=== PATIENT | female | born 1975 | race African-American/Black ===

== ENCOUNTER 2017-06-07 04:47 | Emergency (ER) | payer SELFPAY ==
[2017-06-07] MEDS ORDERED: ZOFRAN IV ONE ×3 (05:36→11:40)
[2017-06-07] MEDS ORDERED: TORADOL IV ONE (05:37)
[2017-06-07 06:15] LABS: Basophils % (Auto) 0.3 % (0.0-1.8); Eosinophils # (Auto) 0.2 K/mm3 (0.0-0.4); Eosinophils % (Auto) 1.5 % (0.0-4.3); Hematocrit 39.2 % (30.3-42.9); Hemoglobin 13.4 gm/dl (10.1-14.3); Lymphocytes # (Auto) 1.6 K/mm3 (1.2-5.4); Lymphocytes % (Auto) 11.2 % (13.4-35.0); Mean Corpuscular HGB Conc 34 % (30-34); Mean Corpuscular Hemoglobin 30 pg (28-32); Mean Corpuscular Volume 89 fl (79-97); Monocytes # (Auto) 0.4 K/mm3 (0.0-0.8); Monocytes % (Auto) 3.1 % (0.0-7.3); Platelet Count 478 K/mm3 (140-440); Red Blood Count 4.42 M/mm3 (3.65-5.03); Red Cell Distribution Width 13.2 % (13.2-15.2)
[2017-06-07 06:28] LABS: BUN/Creatinine Ratio 23; Blood Urea Nitrogen 16 mg/dL (7-17); Calcium 8.8 mg/dL (8.4-10.2); Hemolysis Index 3
[2017-06-07] MEDS ORDERED: DILAUDID IV ONE (10:00)
--- NOTE | 2017-06-07 10:03 | Emergency Department Report ---
ED General Adult HPI - General Chief complaint: Abdominal Pain Stated complaint: BACK PAIN Time Seen by Provider: 06/07/17 09:53 Source: patient Mode of arrival: Ambulatory Limitations: No Limitations - History of Present Illness Initial comments: Mrs. Boyer is a healthy 42-year-old female with history of kidney stone. She woke up this morning with severe sudden onset of right flank pain which radiates to the right lower quadrant. She has had nausea and vomiting. Pain initially 10 out of 10 in severity. It is currently 8 out of 10 in severity. Sharp in nature. Pain does not change with movement. Pain has been constant since this morning. Severity scale (0 -10): 8 - Related Data Previous Rx's Medication Instructions Recorded Last Taken Type HYDROcodone/APAP 5-325 [[place] 1 each PO Q4HR PRN #15 tablet 06/07/17 Unknown Rx 5/325] Promethazine [Phenergan TAB] 25 mg PO Q6HR PRN #10 tab 06/07/17 Unknown Rx Tamsulosin [Flomax] 0.4 mg PO QDAY 7 Days #7 cap 06/07/17 Unknown Rx Allergies Allergy/AdvReac Type Severity Reaction Status Date / Time Penicillins Allergy Unknown Verified 06/07/17 05:39 ED Review of Systems ROS: Stated complaint: BACK PAIN Other details as noted in HPI Comment: All other systems reviewed and negative Constitutional: denies: fever, malaise Respiratory: denies: cough ED Past Medical Hx - Past Medical History Hx Kidney Stones: Yes - Surgical History Past Surgical History?: No - Social History Smoking Status: Never Smoker Substance Use Type: None - Medications Home Medications: Home Medications Medication Instructions Recorded Confirmed Last Taken Type HYDROcodone/APAP 5-325 [[place] 1 each PO Q4HR PRN #15 tablet 06/07/17 Unknown Rx 5/325] Promethazine [Phenergan TAB] 25 mg PO Q6HR PRN #10 tab 06/07/17 Unknown Rx Tamsulosin [Flomax] 0.4 mg PO QDAY 7 Days #7 cap 06/07/17 Unknown Rx ED Physical Exam - General Limitations: No Limitations General appearance: alert, in no apparent distress - Head Head exam: Present: atraumatic, normocephalic - Eye Eye exam: Present: normal appearance - ENT ENT exam: Present: mucous membranes moist - Neck Neck exam: Present: normal inspection - Respiratory Respiratory exam: Present: normal lung sounds bilaterally. Absent: respiratory distress, wheezes, rales, rhonchi - Cardiovascular Cardiovascular Exam: Present: regular rate, normal rhythm. Absent: systolic murmur, diastolic murmur, rubs, gallop - GI/Abdominal GI/Abdominal exam: Present: soft, normal bowel sounds. Absent: distended, tenderness, guarding, rebound - Extremities Exam Extremities exam: Present: normal inspection - Back Exam Back exam: Present: normal inspection, CVA tenderness (R) - Neurological Exam Neurological exam: Present: alert, oriented X3 - Psychiatric Psychiatric exam: Present: normal affect, normal mood - Skin Skin exam: Present: warm, dry, intact, normal color. Absent: rash ED Course Vital Signs 06/07/17 06/07/17 06:05 08:34 Temperature 97.7 F 98.2 F Pulse Rate 67 75 Respiratory 16 20 Rate Blood Pressure 139/89 Blood Pressure 164/87 [Left] O2 Sat by Pulse 100 75 L Oximetry ED Medical Decision Making - Lab Data Result diagrams: 06/07/17 05:55 06/07/17 05:55 Mrs. Boyer presents with renal colic. She has 2 stones in the proximal right ureter the largest measuring 6.4 mm. She is currently pain-free. She understands return precautions of fever vomiting or severe pain. Prescription for Flomax, [place], promethazine provided. She also was given urology referral. Critical care attestation.: If time is entered above; I have spent that time in minutes in the direct care of this critically ill patient, excluding procedure time. ED Disposition Clinical Impression: Ureterolithiasis, Renal colic on right side Disposition: DC-01 TO HOME OR SELFCARE Is pt being admited?: No Does the pt Need Aspirin: No Condition: Stable Instructions: Kidney Stones (ED) Prescriptions: HYDROcodone/APAP 5-325 [[place] 5/325] 1 each PO Q4HR PRN #15 tablet PRN Reason: Pain Promethazine [Phenergan TAB] 25 mg PO Q6HR PRN #10 tab PRN Reason: Nausea Tamsulosin [Flomax] 0.4 mg PO QDAY 7 Days #7 cap Referrals: MELY FALCON MD [Staff Physician] - 3-5 Days Time of Disposition: 12:32
--- NOTE | 2017-06-07 11:29 | Cat Scan Report ---
CT ABDOMEN PELVIS WITHOUT CONTRAST: HISTORY: Right flank pain, kidney stones. COMPARISON: none. TECHNIQUE: Helical CT in 1.25mm intervals without IV contrast. Sagittal and coronal reconstructions. FINDINGS: Lung bases: Normal. Liver: Normal. Biliary system: Normal. Pancreas: Normal. Spleen: Normal. Kidneys/ureters/bladder: The left kidney and collecting system are unremarkable. There are 2 stones in the proximal right ureter measuring up to 6.4 mm. There is mild right hydronephrosis. An 8mm calyceal stone is noted at the inferior pole of the right kidney. The bladder is unremarkable. Adrenal glands: Normal. Aorta: Normal. Intestines: Normal. Appendix: Normal. Pelvic viscera: Normal. Ascites: None. Adenopathy: None. Musculoskeletal: Normal. IMPRESSION: Right nephrolithiasis as described.
[2017-06-07 12:09] LABS: Bacteria,Urine 1+ /HPF (Negative); Bilirubin,Urine NEG (Negative); Blood,Urine LG (Negative); Color,Urine Yellow (Yellow); Mucus,Urine 2+ /HPF; Nitrite,Urine NEG (Negative); Protein,Urine <15 mg/dL mg/dL (Negative); Urobilinogen,Urine < 2.0 mg/dL (<2.0)
[2017-06-07 12:29] LABS: Hyaline Casts,Urine 1 /LPF
[2017-06-07 12:33] LABS: Amorphous Crystals,Urine 1+
[2017-06-07 12:42] VITALS: BP 120/71
== END 2017-06-07 12:57 | disposition home or self-care (01) ==
LOC: ED 04:47
DX: N20.2 Calculus of kidney with calculus of ureter (principal); Z88.0 Allergy status to penicillin
CPT/HCPCS: 36415; 74176; 80048; 81001; 84703; 85025; 96374; 96375; 96376; 99284; J1170; J1885; J2405